=== PATIENT | male | born 1980 | race Two or more races ===

== ENCOUNTER 2021-07-08 03:36 | Emergency (ER) | payer SELFPAY ==
[~2021-07-08] VITALS: Ht 175.3 cm; Wt 124.7 kg
[2021-07-08 03:36] VITALS: BP 151/98
[2021-07-10] MEDS ORDERED: ALBUTEROL SULF 2.5 MG/0.5ML(0.5%) NEB SOLN ONE (01:02)
== END 2021-07-08 06:19 | disposition left against medical advice (07) ==
LOC: ER 03:36
DX: R07.89 Other chest pain (principal); Z53.21 Procedure and treatment not carried out due to patient leaving prior to being seen by health care provider
CPT/HCPCS: 93005

== ENCOUNTER → 2022-02-02 | Emergency (ER) | payer MEDICAID, OTHER ==
[~2022-02-02] VITALS: Ht 175.3 cm; Wt 122.5 kg
[~2022-02-02] MED LIST: CEPH-509 PO; IBUP800T27 PO
[2022-02-02 11:12] VITALS: BP 137/88
== END | disposition home or self-care (01) ==
LOC: ER 11:08
DX: L01.00 Impetigo, unspecified (principal); J45.909 Unspecified asthma, uncomplicated; F17.210 Nicotine dependence, cigarettes, uncomplicated